=== PATIENT | female | born 1975 | race Caucasian/White ===

== ENCOUNTER → 2017-05-02 | Outpatient (POV) | payer MEDICAID, SELFPAY | PROVIDERS: Visit Provider Specialist | DX: G56.03 Carpal tunnel syndrome, bilateral upper limbs (principal) | CPT/HCPCS: 95886; 95909 ==

== ENCOUNTER → 2017-05-11 | Outpatient (CLI) | payer MEDICAID, SELFPAY | PROVIDERS: Family Provider Nurse Practitioner Pediatrics; Visit Provider Orthopaedic Surgery | DX: M25.531 Pain in right wrist (principal); M25.532 Pain in left wrist | CPT/HCPCS: 73110 ==

== ENCOUNTER → 2017-06-15 10:52 | Outpatient (CLI) | payer MEDICAID, SELFPAY ==
--- NOTE | 2017-06-15 11:11 | XR_ITS ---
XR chest 2V HISTORY: Smoker ITS.REASON: NICOTINE DEPENDENT ORDERING PHYSICIAN: Octaviano Dumont MD PATIENT AGE: 41 years COMPARISON: None available FINDINGS: The cardiomediastinal silhouette and pulmonary vascularity are within normal limits. The lungs are clear without infiltrates, suspicious nodules, or pleural effusions. No acute bony abnormalities. IMPRESSION: Negative chest, no acute finding
[2017-06-15 11:27] LABS: Basophils # 0.1 K/mm3 (0-0.2); Basophils % 0.5 % (0.1-2.0); Eosinophils # 0.2 K/mm3 (0.0-0.4); Eosinophils % 2.2 % (0.1-12.0); Hematocrit 45.9 % (37.0-47.0); Hemoglobin 14.7 g/dL (12.2-16.2); Lymphocytes # 2.6 K/mm3 (0.7-4.5); Lymphocytes % 25.6 K/mm3 (10-50); Mean Corpuscular HGB Conc 32.1 g/dL (31.8-35.4); Mean Corpuscular Hemoglobin 29.8 pg (27.0-31.2); Mean Corpuscular Volume 92.9 fl (81-99); Monocytes # 0.7 K/mm3 (0.1-1.0); Monocytes % 6.8 % (1.7-9.3); Neutrophils # 6.5 K/mm3 (1.8-7.8); Platelet Count 146 K/mm3 (142-424); Red Blood Count 4.94 M/mm3 (4.20-5.40); Red Cell Distribution Width 13.3 % (11.5-17.5)
[2017-06-15 11:58] LABS: Blood Urea Nitrogen 14 mg/dL (7-18); Carbon Dioxide 28 mmol/L (21.0-32.0); Chloride 108 mmol/L (98-107); Creatinine,Serum 0.62 mg/dL (0.55-1.02); Estimated Glomerular Filt Rate 106 ml/min (>60); GFR (African American) 128 ML/MIN (>60); Glucose 110 mg/dL (74-106); Sodium 142 mmol/L (136-145)
== END ==
PROVIDERS: PCP Nurse Practitioner Pediatrics; Visit Provider Orthopaedic Surgery
DX: G56.02 Carpal tunnel syndrome, left upper limb (principal); Z01.818 Encounter for other preprocedural examination
CPT/HCPCS: 36415; 71046; 80048; 85025

== ENCOUNTER 2017-07-08 09:56 | Day surgery (SDC) | payer MEDICAID, SELFPAY ==
[2017-07-07 10:35] VITALS: BMI 27.6
[2017-07-08 10:39] VITALS: BP 116/72; PULSE 80; RESP 18; TEMP 36.7; O2SAT 100
[2017-07-08 10:47] LABS: Urine Pregnancy, HCG Qual. Negative (Negative)
--- NOTE | 2017-07-08 11:05 | P.PN_ITS ---
[facility] [place] Anesthesia Checklist - Patient Identification Patient Identification: Arm Band - Structural Data Admitted From: Home Planned Operative Procedure/s: left ctr Consent for Planned Operative Procedure(s) Verified: Yes Verified Documents: Surgical Consent, History and Physical - NPO Status Verified Time NPO: 00:00 - Additional verifications Anesthesia Reactions: No - Airway Assessment C-Spine Mobility Assessed: Yes (mp2) TMJ Mobility Assessed: Yes Dentition: Dentures-good fit - Neurological Assessment Level of Consciousness: Awake, Alert - Anesthesia Plan Anesthesia Risk discussed: Yes Anesthesia Plan: Verified ASA Class: II Anesthesia Type: MAC (with vik block) [facility] [place] Anesthesia HX I have reviewed the patient's past medical history: Yes Medical History: Reports:: Anxiety, Depression Denies:: Cancer, Diabetes Mellitus Type 1, Diabetes Mellitus Type 2, MRSA, Seizures Other Medical History: Reports: Other (Carpal tunnel syndrome, currently taking suboxone) Laterality Cases: Bilateral: Carpal Tunnel Release Other Surgeries: Yes: Amputation: No Fractures: No *Family Hx:: Diabetes
[2017-07-08 13:25] VITALS: BP 110/74; PULSE 74; RESP 16; TEMP 36.6; O2SAT 96
[2017-07-08 13:40] VITALS: BP 121/75; PULSE 78; RESP 16; O2SAT 98
[2017-07-08 13:55] VITALS: BP 100/54; PULSE 68; RESP 16; O2SAT 96
[2017-07-08 14:10] VITALS: BP 96/56; PULSE 70; RESP 16; O2SAT 98
--- NOTE | 2017-07-09 20:25 | HMH.OPNOTE ---
Date of procedure: 07/08/17 Pre-op Diagnosis:: Recurrent carpal tunnel syndrome, left wrist Post-op Diagnosis:: Recurrent carpal tunnel syndrome, left wrist Post-op diagnosis:: same Procedure performed:: Revision open carpal tunnel release, left wrist Surgeon:: Octaviano Dumont MD Bolt Cutter(s):: Klaudia Pfeiffer PRODUCTION DRILLING MACHINE OPERATOR:: Zaire Gaspar Anesthesia: regional Estimated blood loss (mL): 5 Clinical Note:: Patient is a 42-year-old female with recurrent left carpal tunnel syndrome with long-standing symptoms. EMG/NCV results confirmed mild carpal tunnel syndrome on the left side. Patient failed to respond adequately to conservative management. Therefore the revision carpal tunnel release surgery was necessary to relieve symptoms, preserve the remaining fibers of the median nerve, improve function and decrease the pain, paresthesias and weakness and to prevent permanent nerve damage. Operative findings:: The intraoperative findings showed a lot of scarring from the previous surgery. The median nerve was seen to be very tightly compressed and hyperemic. Adhesions and synovitis noted in the carpal tunnel. The flexor retinaculum was noted to be thick and tight. There was no space-occupying lesions within the carpal tunnel. Operative note:: On the day of the surgery the patient was met in the preoperative area. Patient was positively identified and the operative site was marked and initialed by me. A physical examination was performed and the chart was updated. I again discussed the procedure, risks and benefits and alternatives with the patient. The complications discussed include but are not limited to- bleeding, injury to nerves, blood vessels and tendons, infection, wound dehiscence, incomplete relief/continued pain, persistent numbness, palmar hypersensitivity, pillar pain, DVT/PE, complex regional pain syndrome(CRPS), worsening of nerve damage, failure of the condition to improve, incomplete return of function, bowstringing of tendons, weakness of manager relocation strength, recurrence, failure of the surgery to accomplish the desired goals, decreased use of the hand, loss of use of the arm, loss of the hand or arm, loss of life. Likely need for further surgery in the future has been discussed. I have told her that I will be making a a separate and longer incision crossing the wrist crease at an angle and have indicated to the patient where the proposed incision would be made and also discussed the possibility of extending the incision if needed to accomplish an effective release. We have discussed how the goal of surgery is to protect the fibers which have remained healthy and hopefully reverse the symptoms of the fibers which are compromised but still recoverable. We have explained that, fibers that are permanently damaged will not recover. We have also discussed the anesthetic options which include local, regional and general. Patient expressed a preference for a regional Mabie's block. Patient asked appropriate questions and all have been answered by me. Patient wished to proceed with the surgery. Consent form was reviewed and signed. The patient was brought to the operating room and placed supine on the operating table. The left upper extremity was placed over a side table. All the bony prominences were well-padded. The patient had a Paulina's block anesthesia and IV sedation administered by the manager of transportation. Please see nursing records for the total tourniquet time. The left upper extremity was prepped and draped in the usual sterile fashion. A preprocedure timeout was performed as per hospital policy. The Cuevas's landmarks and previous skin incision was marked on the skin with a marker pen. I then marked the proposed new incision more ulnar to the previous scar and extending into the forearm crossing the distal wrist crease at an angle. The skin incision was made for the extensile approach to the carpal tunnel release more ulnarly and slightly curved and then extended into the forear
--- NOTE | 2017-07-09 20:30 | P.OP_ITS ---
Date of procedure: 07/08/17 Pre-op Diagnosis:: Recurrent carpal tunnel syndrome, left wrist Post-op Diagnosis:: Recurrent carpal tunnel syndrome, left wrist Post-op diagnosis:: same Procedure performed:: Revision open carpal tunnel release, left wrist Surgeon:: Octaviano Dumont MD Facility Maintenance Helper(s):: Klaudia Pfeiffer CLINICAL SCIENCES PROFESSOR:: Zaire Gaspar Anesthesia: regional Estimated blood loss (mL): 5 Clinical Note:: Patient is a 42-year-old female with recurrent left carpal tunnel syndrome with long-standing symptoms. EMG/NCV results confirmed mild carpal tunnel syndrome on the left side. Patient failed to respond adequately to conservative management. Therefore the revision carpal tunnel release surgery was necessary to relieve symptoms, preserve the remaining fibers of the median nerve, improve function and decrease the pain, paresthesias and weakness and to prevent permanent nerve damage. Operative findings:: The intraoperative findings showed a lot of scarring from the previous surgery. The median nerve was seen to be very tightly compressed and hyperemic. Adhesions and synovitis noted in the carpal tunnel. The flexor retinaculum was noted to be thick and tight. There was no space-occupying lesions within the carpal tunnel. Operative note:: On the day of the surgery the patient was met in the preoperative area. Patient was positively identified and the operative site was marked and initialed by me. A physical examination was performed and the chart was updated. I again discussed the procedure, risks and benefits and alternatives with the patient. The complications discussed include but are not limited to- bleeding, injury to nerves, blood vessels and tendons, infection, wound dehiscence, incomplete relief/continued pain, persistent numbness, palmar hypersensitivity, pillar pain , DVT/PE, complex regional pain syndrome(CRPS), worsening of nerve damage, failure of the condition to improve, incomplete return of function, bowstringing of tendons, weakness of first aid teacher strength, recurrence, failure of the surgery to accomplish the desired goals, decreased use of the hand, loss of use of the arm, loss of the hand or arm, loss of life. Likely need for further surgery in the future has been discussed. I have told her that I will be making a a separate and longer incision crossing the wrist crease at an angle and have indicated to the patient where the proposed incision would be made and also discussed the possibility of extending the incision if needed to accomplish an effective release. We have discussed how the goal of surgery is to protect the fibers which have remained healthy and hopefully reverse the symptoms of the fibers which are compromised but still recoverable. We have explained that, fibers that are permanently damaged will not recover. We have also discussed the anesthetic options which include local, regional and general. Patient expressed a preference for a regional Eighty Four's block. Patient asked appropriate questions and all have been answered by me. Patient wished to proceed with the surgery. Consent form was reviewed and signed. The patient was brought to the operating room and placed supine on the operating table. The left upper extremity was placed over a side table. All the bony prominences were well-padded. The patient had a Paulina's block anesthesia and IV sedation administered by the surveyor helper rod. Please see nursing records for the total tourniquet time. The left upper extremity was prepped and draped in the usual sterile fashion. A preprocedure timeout was performed as per hospital policy. The Cuevas's landmarks and previous skin incision was marked on the skin with a marker pen. I then marked the proposed new incision more ulnar to the previ
== END 2017-07-08 14:10 | disposition home or self-care (01) ==
LOC: OR 09:58
PROVIDERS: Family Provider Nurse Practitioner Pediatrics; PCP Nurse Practitioner Pediatrics; Visit Provider Orthopaedic Surgery
PROC: (CPT 64721; principal; 2017-07-08 11:30)
DX: G56.01 Carpal tunnel syndrome, right upper limb (principal)
CPT/HCPCS: 64721; 81025; J2704

== ENCOUNTER → 2018-03-27 10:23 | Outpatient (POV) | payer MEDICAID, SELFPAY | PROVIDERS: Visit Provider Specialist | DX: M79.601 Pain in right arm (principal); R20.2 Paresthesia of skin | CPT/HCPCS: 95886; 95908 ==